=== PATIENT | male | born 1935 | race Caucasian/White ===

== ENCOUNTER 2018-11-13 09:10 | Emergency (ER) | payer MEDICARE, OTHER, MEDICAID ==
--- NOTE | 2018-11-13 09:12 | EDM.PDOC ---
ED HPI GENERAL MEDICAL PROBLEM - General Chief Complaint: General Stated Complaint: Vertigo Time Seen by Provider: 11/13/18 09:10 Source of Information: Reports: Patient, Old Records ([facility] chart/EMR) History Limitations: Reports: No Limitations - History of Present Illness INITIAL COMMENTS - FREE TEXT/NARRATIVE: Patient was brought to the emergency room via ambulance with slack line yarder accompaniment for evaluation of nonspecific vertigo and dizziness, which started earlier this morning. The nursing staff did notice some vertigo with blood pressure 186/88 earlier this morning. Only limited records obtained from the halfway with no previous verbal report received from that facility. Saline lock was placed by the paramedics with a normal EKG prior to arrival to this facility. No other treatment prior to arrival. The patient denies any chest pain/pressure, heart flutter, dizziness, orthostasis, orthopnea, diaphoresis, paresthesias, recent decreased exercise tolerance, or any other anginal-type symptoms. No recent history of abdominal pain, heartburn, nausea, diarrhea, melena, gross hematochezia, or any food intolerance, including fatty foods, etc.. The patient also denies any recent fever, cough, wheezing, dyspnea , etc.. No history of recent headaches, visual changes, diplopia, change in mental status, or other change in his previous neurological deficits with patient having a long history of polio as below. He denies any pain or discomfort. He has had a distant history of similar type symptoms, which were related to his polio, per history from his son. Onset: Today, Unknown/Unsure Onset Date: 11/13/18 Onset Time: 08:00 Duration: Intermittent Location: Reports: Other (No pain) Quality: Reports: Same as Previous Episode Severity: Moderate Improves with: Reports: Rest Worsens with: Reports: Movement (Of his head) Associated Symptoms: Reports: Weakness (Stable bilateral leg weakness from his MS). Denies: Confusion, Chest Pain, Cough, Diaphoresis, Fever/Chills, Headaches , Loss of Appetite, Nausea/Vomiting, Seizure, Shortness of Breath Treatments TOP CLEANER: Reports: EKG, IV/IO - Related Data Allergies Allergy/AdvReac Type Severity Reaction Status Date / Time No Known Allergies Allergy Verified 06/06/15 15:59 Home Meds: Home Meds Insulin Glarg,Human.Rec.Analog [LantUS Solostar] 60 units SUBCUT BEDTIME [History] Lovastatin [Mevacor] 40 mg PO DAILY 06/06/15 [History] Acetaminophen 650 mg PO BID 11/13/18 [History] Clopidogrel [Plavix] 75 mg PO DAILY 11/13/18 [History] Dextromethorphan/guaiFENesin [Robitussin DM] 5 ml PO BEDTIME 11/13/18 [History] Fesoterodine Fumarate [Toviaz] 1 tab PO DAILY 11/13/18 [History] Insulin Aspart [NovoLOG] 28 unit SQ BID 11/13/18 [History] Losartan [Cozaar] 25 mg PO DAILY 11/13/18 [History] Lutein/Minerals/Vit A,C & E [I-Susana] 1 tab PO DAILY 11/13/18 [History] Magnesium Oxide 400 mg PO DAILY #30 tab 11/13/18 [Rx] Meclizine [Antivert] 25 mg PO Q6H PRN #20 tab 11/13/18 [Rx] Metoprolol Succinate [Toprol XL] 25 mg PO DAILY 11/13/18 [History] Mirabegron [Myrbetriq] 25 mg PO DAILY 11/13/18 [History] Multivitamin [Multivitamins] 1 each PO DAILY 11/13/18 [History] Sennosides/Docusate Sodium [Docuzen 8.6-50 mg Tablet] 2 tab PO BID PRN 11/13/18 [History] Tamsulosin HCl [Flomax] 1 cap PO DAILY 11/13/18 [History] Tolterodine [Detrol] 2 mg PO BID 11/13/18 [History] Past Medical History HEENT History: Reports: Cataract, Hard of Hearing, Impaired Vision, Other (See Below). Denies: Allergic Rhinitis, Glaucoma, Macular Degeneration, Otitis Media , Retinal Detachment Other HEENT History: Bilateral presbycusis with no current hearing aid therapy. Patient does wear glasses. Cardiovascular History: Reports: Arrhythmia, High Cholesterol, Hypertension. Denies: Afib, Aneurysm, Blood Clots/VTE/DVT, CAD, Heart Failure, Heart Murmur, CO, PVD, Syncope Respiratory History: Reports: None. Denies: Asthma, COPD, PE, Pneumothorax, Sleep Apnea Gastrointestinal History: Reports: Chronic Constipation, Diverticulosis, Fecal Incontinence, GERD, Hiatal Hernia, Other (See Below). Denies: Celiac Disease, Cholelithiasis, Colon Polyp, Gastritis, GI Bleed, Hepatitis, Jaundice, Pancreatitis, PUD Other Gastrointestinal History: Stool incontinence secondary to his polio. Gilbert's syndrome. Genitourinary History: Reports: BPH, Hydronephrosis, Renal Calculus, Urinary Incontinence, UTI, Recurrent, Other (See Below). Denies: Acute Renal Failure, Chronic Renal Insuffiency Other Genitourinary History: Bilateral nephrolithiasis with an additional moderate hydronephrosis secondary to 6.6 mm left ureteral stone requiring stent placement and removal in August 2015 as below. Note sepsis during that hospitalization. Urinary incontinence secondary to his polio. Musculoskeletal History: Reports: Arthritis, Back Pain, Chronic, Fracture, Neck Pain, Chronic, Osteoarthritis, Osteoporosis, Other (See Below). Denies: Gout, RA, SLE Other Musculoskeletal History: T12 compression fracture. Neurological History: Reports: Vertigo, Other (See Below). 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 Psychiatric History: Reports: None. Denies: Abuse, Victim of, ADD, Anxiety, Depression, Psych Hospitalization(s), PTSD, Suicide Attempt, Suicidal Ideation Endocrine/Metabolic History: Reports: Diabetes, Type II, IDDM, Obesity/BMI 30+, Osteoporosis. Denies: Diabetes, Type I, Hypothyroidism Hematologic History: Reports: None. Denies: Anemia, B12 Deficiency, Blood Transfusion(s), Iron Deficiency Immunologic History: Reports: None. Denies: AIDS, HIV, SLE Oncologic (Cancer) History: Reports: None. Denies: Basal Cell Carcinoma, Bladder, Colon, Hodgkin's Lymphoma, Leukemia, Lymphoma, Malignant Melanoma, Non- Hodgkin's Lymphoma, Prostate, Squamous Cell Carcinoma Dermatologic History: Reports: None. Denies: Decubitus Ulcer, Eczema, Psoriasis - Infectious Disease History Infectious Disease History: Reports: Chicken Pox, Measles, Other (See Below). Denies: C-Difficile, Meningitis, Mononucleosis, MRSA, Mumps, Pertussis ( Whooping Cough), Rheumatic Fever, Rubella, Shingles, TB, VRE Other Infectious Disease History: Polio at age 13 as above - Past Surgical History Head Surgeries/Procedures: Reports: None HEENT Surgical History: Reports: Oral Surgery, Other (See Below). Denies: Adenoidectomy, Cataract Surgery, Eye Surgery, Laser Surgery, LASIK, Myringotomy w Tube(s), Naso-Sinus Surgery, Tonsillectomy Other HEENT Surgeries/Procedures: Multiple teeth extractions including 2 wisdom teeth in his 20s and 1 wisdom tooth in his 30s. Cardiovascular Surgical History: Reports: None. Denies: Varicose Respiratory Surgical History: Reports: None. Denies: Thoracentesis GI Surgical History: Reports: None, Hernia, Inguinal, Other (See Below). Denies : Appendectomy, Cholecystectomy, Colonoscopy, EGD, Hernia, Abdominal, Hernia Repair/Other Other GI Surgeries/Procedures: Right inguinal hernia repair on 04/15/05. Male Surgical History: Reports: Circumcision, Kidney Stone Extraction, Other (See Below). Denies: TURP-Transurethral Resection of Prostate, Vasectomy Other Male Surgeries/Procedures: Circumcision as an . Left ureteral stone extraction with stent placement on 06/07/15. Endocrine Surgical History: Reports: None. Denies: Thyroid Biopsy Neurological Surgical History: Reports: None. Denies: C-Spine, Discectomy, Laminectomy, Lumbar Spine, Sacral Spine, Spinal Fusion, Thoracic Spine, Vertebroplasty Musculoskeletal Surgical History: Reports: None. Denies: Amputation, Arthroscopic Procedure, Carpal Tunnel, Ganglion Cyst, Joint Replacement, ORIF, Shoulder Surgery Oncologic Surgical History: Reports: None Dermatological Surgical History: Reports: None - Past Imaging History Past Imaging History: Reports: CAT Scan (Positive CT scan of the abdomen and pelvis on 06/06/15 for nephrolithiasis, hydronephrosis, etc. as above.), MRI ( Brain, C-spine, and T-spine on 05/26/12), Ultrasound (Bilateral renal ultrasound on 06/01/18.) Social & Family History - Family History HEENT: Reports: None. Denies: Glaucoma, Macular Degeneration, Retinal Detachment Cardiac: Reports: CAD, High Cholesterol, Hypertension, CO, Other (See Below). Denies: Aneurysm, Arrhythmia, Blood Clots/VTE/DVT, PVD/COD, Syncope Other Cardiac Family History: Maternal grandfather with fatal CO in his 70s. Father with fatal CO at age 78. Hyperlipidemia in mother. Hypertension in mother and maternal grandfather. Respiratory: Denies: Asthma, COPD, PE, Pneumothorax, Sleep Apnea GI: Reports: Cholelithiasis, Other (See Below) Other GI Family History: Mother with cholelithiasis. : Reports: Renal Calculus, Other (See Below). Denies: Renal Disease/ Insufficiency Other Family History: Mother with bladder stone. OBGYN: Reports: Other (See Below) Other OBGYN Family History: Daughter with endometriosis. Musculoskeletal: Reports: Fibromyalgia, Osteoarthritis, RA. Denies: Gout, SLE Other Musculoskeletal Family History: Brother with fibromyalgia. Osteoarthritis in mother. Maternal aunt with rheumatoid arthritis. Neurological: Reports: TIA. Denies: Alzheimers Disease, Cerebral Aneurysms, CVA , Parkinson's, Seizure Other Neurological Family History: Mother and maternal aunt with polio. Mother with TIA. Psychiatric: Reports: Bipolar, Depression, Other (See Below). Denies: Suicide Attempt Other Psychiatric Family History: Daughter with anxiety depression disorder and bipolar reactions. Endocrine/Metabolic: Reports: None. Denies: Diabetes, Type I, Diabetes, type II , Hypothyroidism, IDDM Hematologic: Reports: None. Denies: Anemia, SLE Immunologic: Reports: None. Denies: AIDS, HIV, SLE Dermatologic: Reports: None. Denies: Eczema, Psoriasis Oncologic: Reports: Leukemia (Maternal uncle with fatal leukemia in his 70s), Lung (Paternal grandmother with fatal lung cancer), Ovarian (Daughter in her 20s ), Skin (Father with basal cell carcinoma) - Tobacco Use Smoking Status *Q: Former Smoker Tobacco Use Within Last Twelve Months: No Years of Tobacco use: 2 Packs/Tins Daily: 0.8 Packs/Tins Daily Comment: Last tobacco use in 1965 Used Tobacco, but Quit: Yes Smoking Cessation Information Provided To Patient: No Second Hand Smoke Exposure: No Second Hand Smoke Education Provided: No - Caffeine Use Caffeine Use: Reports: Soda (2 sodas per day), Tea (2 cups of tea per week). Denies: Coffee (Decaffeinated coffee only), Energy Drinks - Alcohol Use Alcohol Use History: No Days Per Week of Alcohol Use: 0 Number of Drinks Per Day: 0 Number of Drinks Per Day Comment: No previous DWIs, problems with alcohol abuse , etc. 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 ED EXAM, GENERAL - Physical Exam Exam: See Below Exam Limited By: No Limitations General Appearance: Alert, WD/WN, No Apparent Distress Eye Exam: Bilateral Eye: EOMI, Normal Fundi, Normal Inspection (No nystagmus is only mild vertigo with head movement bilaterally), PERRL Ears: Normal External Exam, Normal Canal, Hearing Grossly Normal, Normal TMs Nose: Normal Inspection, Normal Mucosa, No Blood Throat/Mouth: Normal Lips, Normal Gums, Normal Oropharynx, Normal Voice, No Airway Compromise. No: Normal Teeth (Double missing teeth including broken teeth into the gumline with possible beginning caries in the left upper premolar region), Dysphagia, Perioral Cyanosis Head: Atraumatic, Normocephalic. No: Facial Swelling, Facial Tenderness, Sinus Tenderness Neck: Supple, Non-Tender, Full Range of Motion, Carotid Bruit (Bilateral carotid bruitsmild). No: Lymphadenopathy (L), Lymphadenopathy (R), Thyromegaly Respiratory/Chest: No Respiratory Distress, Lungs Clear, Normal Breath Sounds, No Accessory Muscle Use, Chest Non-Tender. No: Pleural Rub, Retractions Cardiovascular: Normal Peripheral Pulses, Regular Rate, Rhythm, No Edema, No Gallop, No JVD, No Murmur, No Rub. No: Gallop/S3, Gallop/S4, Friction Rub Peripheral Pulses: 2+: Radial (L), Radial (R), Dorsalis Pedis (L), Dorsalis Pedis (R) GI/Abdominal: Normal Bowel Sounds, Soft, Non-Tender, No Organomegaly, No Distention, No Abnormal Bruit, No Mass, Pelvis Stable, Other (Obese). No: Guarding (Male) Exam: Deferred Rectal (Males) Exam: Deferred Back Exam: Full Range of Motion, Other (Mild to moderate kyphoscoliosis). No: CVA Tenderness (L), CVA Tenderness (R), Muscle Spasm Extremities: Non-Tender, Pedal Edema (+1 bilateral pedal/pretibial edema left greater than right), Limited Range of Motion (Lower extremity secondary to his polio ). No: Justen's Sign Neurological: Alert, Oriented, Normal Cognition, Normal Reflexes (Negative Babinski's). No: CN II-XII Intact, Normal Gait (Left leg paralysis and severe right leg weakness secondary to her poliostable by history) Psychiatric: Normal Affect, Normal Mood Skin Exam: Warm. No: Diaphoretic, Wound/Incision Lymphatic: No Adenopathy Course - Vital Signs Last Recorded V/S: Last Vital Signs Temp 36.4 C 11/13/18 09:10 Pulse 86 11/13/18 11:51 Resp 17 11/13/18 11:51 BP 139/48 L 11/13/18 11:51 Pulse Ox 95 11/13/18 11:51 Vital Signs - 24 hr 11/13/18 11/13/18 11/13/18 09:10 09:36 10:21 Temperature [ 36.4 C Oral] Pulse, 90 90 87 Peripheral [ Right Pulse Oximetry] Respiratory 20 20 20 Rate Blood Pressure 156/70 H 166/68 H 139/98 H [Left Upper Arm ] O2 Sat by Pulse 95 95 96 Oximetry 11/13/18 11/13/18 11:06 11:51 Temperature [ Oral] Pulse, 87 86 Peripheral [ Right Pulse Oximetry] Respiratory 20 17 Rate Blood Pressure 128/57 L 139/48 L [Left Upper Arm ] O2 Sat by Pulse 95 95 Oximetry - Orders/Labs/Meds Orders: Active Orders 24 hr Category Date Time Status Cardiac Monitoring [RC] . DIRECTED Care 11/13/18 09:13 Active Obtain Past Medical Record [OM.PC] Routine Oth 11/13/18 09:13 Active Labs: Laboratory Tests 11/13/18 11/13/18 Range/Units 09:20 09:20 WBC 7.7 (4.0-10.2) K/uL RBC 5.13 (4.33-5.41) M/uL Hgb 15.6 (13.1-16.8) g/dL Hct 46.3 (39.0-49.0) % MCV 90.3 (84.0-98.0) fL MCH 30.4 (28.2-33.3) pg MCHC 33.7 (31.7-36.0) g/dL RDW 14.0 (11.2-14.1) % Plt Count 158 (150-350) K/uL Neut % (Auto) 81.8 H (45.0-80.0) % Lymph % (Auto) 10.0 (10.0-50.0) % [place] % (Auto) 5.2 (2.0-14.0) % Eos % (Auto) 2.5 (0.0-5.0) % Baso % (Auto) 0.5 (0.0-2.0) % Neut # (Auto) 6.28 (1.40-7.00) K/uL Lymph # (Auto) 0.77 (0.50-3.50) K/uL [place] # (Auto) 0.40 (0.00-1.00) K/uL Eos # (Auto) 0.19 (0.00-0.50) K/uL Baso # (Auto) 0.04 (0.00-0.20) K/uL Sodium 139 (136-145) mmol/L Potassium 4.7 (3.5-5.1) mmol/L Chloride 104 (98-107) mmol/L Carbon Dioxide 29.3 (21.0-32.0) mmol/L BUN 13 (7-18) mg/dL Creatinine 0.66 (0.51-1.17) mg/dL Est Cr Clr Drug Dosing 75.19 mL/min Estimated GFR (MDRD) > 60 mL/min Glucose 232 H (74-106) mg/dL Calcium 8.7 (8.5-10.1) mg/dL Magnesium 1.6 L (1.8-2.4) mg/dL Total Bilirubin 1.2 H (0.2-1.0) mg/dL AST 29 (15-37) U/L ALT 43 (12-78) U/L Alkaline Phosphatase 50 (46-116) IU/L C-Reactive Protein < 0.2 (<=0.9) mg/dL Total Protein 6.9 (6.4-8.2) g/dL Albumin 3.7 (3.4-5.0) g/dL Meds: None - Radiology Interpretation Free Text/Narrative:: None although EKG from the paramedics was reviewed with no evidence of acute ischemic changes or arrhythmia Departure - Departure Time of Disposition: 12:35 Disposition: DC/Tfer to [facility] 62 Condition: Good Clinical Impression: IDDM (insulin dependent diabetes mellitus), Gilbert's syndrome, Peptic reflux disease, Caries, Polio, Vertigo, Hypomagnesemia, Hypertension Osteoarthritis Qualifiers: Osteoarthritis location: multiple joints Osteoarthritis type: primary Qualified Code(s): M15.0 - Primary generalized (osteo)arthritis - Discharge Information *PRESCRIPTION DRUG MONITORING PROGRAM REVIEWED*: Not Applicable *COPY OF PRESCRIPTION DRUG MONITORING REPORT IN PATIENT ELVIE: Not Applicable Prescriptions: Magnesium Oxide 400 mg PO DAILY #30 tab Meclizine [Antivert] 25 mg PO Q6H PRN #20 tab PRN Reason: Dizziness Instructions: Vertigo, [id number], Labyrinthitis, [id number] Referrals: Kerri Saldana PA [Primary Care Provider] - Forms: ED Department Discharge Additional Instructions: 1. Follow up with your regular provider in 10-14 days as needed, if symptoms persist. Bring these discharge instructions with you to that visit.. 2. Continue current to previous standard and routine halfway orders. 3. Update regular provider in 7 days with further instructions for possible discontinuation and/or continuation of induration newly prescribed causing therapy. Discuss magnesium level at that time as below. 4. Magnesium level in 7 days with further instructions by regular provider as above 5. Continue strict fall precautions. 6. Please remember that we are ALWAYS here for you and want to answer any questions you may have. Feel free to call the hospital any time and we call you back MARCE. - Problem List & Annotations (1) Vertigo SNOMED Code(s): 403845741 Code(s): R42 - DIZZINESS AND GIDDINESS Status: Acute Priority: High Current Visit: Yes Onset Date: 11/13/18 Annotation/Comment:: Nonspecific vertigo with resolved nystagmus at this time. Possible labyrinthitis versus related to his polio is in the past?. Symptomatic relief and close follow-up by his regular provider as per discharge instructions. No change in neurological status. (2) Polio SNOMED Code(s): 552492245 Code(s): A80.9 - ACUTE POLIOMYELITIS, UNSPECIFIED Status: Chronic Priority: Medium Current Visit: Yes Annotation/Comment:: Stable bilateral lower extremity paresis by history and today's exam. No other neurological deficits. (3) Hypomagnesemia SNOMED Code(s): 815146436 Code(s): E83.42 - HYPOMAGNESEMIA Status: Acute Priority: Medium Current Visit: Yes Onset Date: 11/13/18 Annotation/Comment:: Initiate magnesium oxide therapy with close follow-up by regular provider as per discharge instructions. (4) Caries SNOMED Code(s): 56671779 Code(s): K02.9 - DENTAL CARIES, UNSPECIFIED Status: Chronic Priority: Medium Current Visit: Yes Annotation/Comment:: Patient once again strongly encouraged to followup with his dentist MARCE with dental hygiene and complications of dental caries discussed. (5) Gilbert's syndrome SNOMED Code(s): 01345693 Code(s): E80.4 - GILBERT SYNDROME Status: Chronic Priority: Medium Current Visit: Yes Annotation/Comment:: Stable per our medical records. (6) IDDM (insulin dependent diabetes mellitus) SNOMED Code(s): 83054012 Code(s): E11.9 - TYPE 2 DIABETES MELLITUS WITHOUT COMPLICATIONS; Z79.4 - SENIOR LIVING (CURRENT) USE OF INSULIN Status: Chronic Priority: Medium Current Visit: Yes Annotation/Comment:: Stable by history. Continue close observation by halfway and his providers. (7) Osteoarthritis SNOMED Code(s): 301606814 Code(s): M19.90 - UNSPECIFIED OSTEOARTHRITIS, UNSPECIFIED SITE Status: Chronic Priority: Medium Current Visit: Yes Annotation/Comment:: Stable by patient history Qualifiers: Osteoarthritis location: multiple joints Osteoarthritis type: primary Qualified Code(s): M15.0 - Primary generalized (osteo)arthritis (8) Peptic reflux disease SNOMED Code(s): 663249146 Code(s): K21.9 - GASTRO-ESOPHAGEAL REFLUX DISEASE WITHOUT ESOPHAGITIS Status: Chronic Priority: Medium Current Visit: Yes Annotation/Comment:: Stable by patient history and nonsymptomatic today. (9) Hypertension SNOMED Code(s): 23292761 Code(s): I10 - ESSENTIAL (PRIMARY) HYPERTENSION Status: Chronic Priority : Medium Current Visit: Yes Annotation/Comment:: Blood pressures somewhat elevated initially in the emergency room, however improved prior to discharge. Continue to observe closely by his regular providers with no change in medical therapy for now. Qualifiers: Hypertension type: essential hypertension Qualified Code(s): I10 - Essential (primary) hypertension - Problem List Review Problem List Initiated/Reviewed/Updated: Yes - My Orders Last 24 Hours: My Active Orders 11/13/18 09:13 Cardiac Monitoring [RC] . DIRECTED Obtain Past Medical Record [OM.PC] Routine - Assessment/Plan Last 24 Hours: My Active Orders 11/13/18 09:13 Cardiac Monitoring [RC] . DIRECTED Obtain Past Medical Record [OM.PC] Routine Assessment:: As above Plan: As above. Extensive precautions were given to the patient, who is in agreement with the treatment plan. See Patient Instructions for further treatment and plan. Emergency room record to be provided to the halfway.
[2018-11-13 09:48] LABS: CHLORIDE,CL 104 mmol/L (98-107); SODIUM,NA 139 mmol/L (136-145)
[2018-11-13 13:02] VITALS: BP 139/48; PULSE 86
== END 2018-11-13 12:35 ==
LOC: LL.ED 09:10 → UNDOADMOB 10:07 → LL.MS 10:07 → LL.ED 12:35
DX: E11.9 Type 2 diabetes mellitus without complications (principal); I10 Essential (primary) hypertension; E80.4 Gilbert syndrome; M15.0 Primary generalized (osteo)arthritis; A80.9 Acute poliomyelitis, unspecified; K21.9 Gastro-esophageal reflux disease without esophagitis; K02.9 Dental caries, unspecified; E78.00 Pure hypercholesterolemia, unspecified; E83.42 Hypomagnesemia; F41.9 Anxiety disorder, unspecified; F32.9 Major depressive disorder, single episode, unspecified; E66.9 Obesity, unspecified; Z87.891 Personal history of nicotine dependence; Z68.35 Body mass index [BMI] 35.0-35.9, adult; Z79.4 Long term (current) use of insulin; Z79.899 Other long term (current) drug therapy
CPT/HCPCS: 36415; 80053; 83735; 85025; 86140; 99284; 99285

== ENCOUNTER 2024-03-12 11:30 | Emergency (ER) | payer MEDICAID, MEDICARE, OTHER ==
[2024-03-12] MEDS ORDERED: Sodium Chloride 0.9% 10 ML Syringe FLUSH PRN (11:33)
[2024-03-12] MEDS ORDERED: Ondansetron 4 MG/2 ML SDV IVPUSH PRN (11:34)
[2024-03-12 11:50] LABS: BASOPHILS ABSOLUTE AUTO 0.02 K/uL (0.00-0.20); BASOPHILS PERCENT AUTO 0.1 % (0.0-2.0); EOSINOPHILS ABSOLUTE AUTO 0.08 K/uL (0.00-0.50); EOSINOPHILS PERCENT AUTO 0.6 % (0.0-5.0); HEMATOCRIT 39.7 % (39.0-49.0); HEMOGLOBIN 12.6 g/dL (13.1-16.8); IMMATURE GRAN ABSOLUTE AUTO 0.07 10^3/uL (0.00-0.50); IMMATURE GRAN PERCENT AUTO 0.5 % (0.0-5.0); LYMPHOCYTES ABSOLUTE AUTO 0.53 K/uL (0.50-3.50); LYMPHOCYTES PERCENT AUTO 3.9 % (10.0-50.0); MEAN CORPUSCULAR HEMOGLOBIN 27.8 pg (28.2-33.3); MEAN CORPUSCULAR HGB CONC 31.7 g/dL (31.7-36.0); MEAN CORPUSCULAR VOLUME 87.6 fL (84.0-98.0); MONOCYTES ABSOLUTE AUTO 0.47 K/uL (0.00-1.00); MONOCYTES PERCENT AUTO 3.5 % (2.0-14.0); NEUTROPHILS ABSOLUTE AUTO 12.42 K/uL (1.40-7.00); NEUTROPHILS PERCENT AUTO 91.4 % (45.0-80.0); PLATELET COUNT,PLT 288 K/uL (150-350); RED BLOOD CELL COUNT 4.53 M/uL (4.33-5.41); RED CELL DISTRIBUTION WIDTH 15.3 % (11.2-14.1); WHITE BLOOD CELL COUNT,WBC 13.6 K/uL (4.0-10.2)
[2024-03-12 12:09] LABS: INR 1.2 (0.9-1.1); PROTHROMBIN TIME 11.6 SEC (9.0-11.1)
[2024-03-12 12:14] LABS: LACTIC ACID 1.3 mmol/L (0.4-2.0)
[2024-03-12 12:20] LABS: ALANINE AMINOTRANSFERASE,ALT 13 U/L (12-78); ALBUMIN 2.3 g/dL (3.4-5.0); ALKALINE PHOSPHATASE 99 IU/L (46-116); ANION GAP 10.2 meq/L (7-15); ASPARTATE AMNIOTRANSFERASE,AST 16 U/L (15-37); BILIRUBIN TOTAL 1.2 mg/dL (0.2-1.0); BLOOD UREA NITROGEN,BUN 43 mg/dL (7-18); CALCIUM 8.4 mg/dL (8.5-10.1); CARBON DIOXIDE,CO2 25.8 mmol/L (21.0-32.0); CHLORIDE,CL 106 mmol/L (98-107); CREATININE 1.04 mg/dL (0.51-1.17); GLUCOSE RANDOM 206 mg/dL (70-99); MAGNESIUM 2.4 mg/dL (1.8-2.4); POTASSIUM,K 4.2 mmol/L (3.5-5.1); PRO B-TYPE NATRIUR PEPT,BNPPRO 415 pg/mL (0-125); PROTEIN TOTAL,TP 5.7 g/dL (6.4-8.2); SODIUM,NA 142 mmol/L (136-145)
[2024-03-12 12:22] LABS: ESTIMATED GFR 69 mL/min (>=60)
[2024-03-12 15:47] VITALS: BP 143/73; PULSE 83
== END 2024-03-12 15:24 ==
LOC: LL.ED 11:30
DX: K21.9 Gastro-esophageal reflux disease without esophagitis (principal); I10 Essential (primary) hypertension; E78.00 Pure hypercholesterolemia, unspecified; E11.9 Type 2 diabetes mellitus without complications; E66.9 Obesity, unspecified; Z87.19 Personal history of other diseases of the digestive system; Z79.4 Long term (current) use of insulin; Z79.899 Other long term (current) drug therapy
CPT/HCPCS: 36415; 71045; 80053; 83605; 83735; 83880; 84484; 85025; 85610; 87428-QW; 99284; 99285

== ENCOUNTER 2024-03-18 09:04 | Emergency (ER) | payer MEDICARE ==
[2024-03-18] MEDS ORDERED: Sodium Chloride 0.9% 10 ML Syringe FLUSH PRN (09:15)
[2024-03-18 09:29] LABS: BASOPHILS ABSOLUTE AUTO 0.01 K/uL (0.00-0.20); HEMATOCRIT 43.8 % (39.0-49.0); HEMOGLOBIN 13.9 g/dL (13.1-16.8); IMMATURE GRAN PERCENT AUTO 1.7 % (0.0-5.0); LYMPHOCYTES ABSOLUTE AUTO 0.53 K/uL (0.50-3.50); LYMPHOCYTES PERCENT AUTO 2.3 % (10.0-50.0); MEAN CORPUSCULAR HEMOGLOBIN 27.9 pg (28.2-33.3); MEAN CORPUSCULAR HGB CONC 31.7 g/dL (31.7-36.0); MEAN CORPUSCULAR VOLUME 87.8 fL (84.0-98.0); MONOCYTES ABSOLUTE AUTO 1.02 K/uL (0.00-1.00); MONOCYTES PERCENT AUTO 4.4 % (2.0-14.0); NEUTROPHILS ABSOLUTE AUTO 21.41 K/uL (1.40-7.00); NEUTROPHILS PERCENT AUTO 91.6 % (45.0-80.0); PLATELET COUNT,PLT 284 K/uL (150-350); RED BLOOD CELL COUNT 4.99 M/uL (4.33-5.41); WHITE BLOOD CELL COUNT,WBC 23.4 K/uL (4.0-10.2)
[2024-03-18] MEDS: Lactated Ringers 1,000 ML IV SCH (09:43)
[2024-03-18 09:53] LABS: ALANINE AMINOTRANSFERASE,ALT 20 U/L (12-78); ALBUMIN 2.3 g/dL (3.4-5.0); ALKALINE PHOSPHATASE 109 IU/L (46-116); ASPARTATE AMNIOTRANSFERASE,AST 21 U/L (15-37); BILIRUBIN TOTAL 0.7 mg/dL (0.2-1.0); BLOOD UREA NITROGEN,BUN 73 mg/dL (7-18); C-REACTIVE PROTEIN 21.57 mg/dL (0.05-0.30); CALCIUM 8.6 mg/dL (8.5-10.1); CARBON DIOXIDE,CO2 22.1 mmol/L (21.0-32.0); CHLORIDE,CL 109 mmol/L (98-107); CREATININE 1.68 mg/dL (0.51-1.17); PROTEIN TOTAL,TP 6.4 g/dL (6.4-8.2); SODIUM,NA 147 mmol/L (136-145)
[2024-03-18 09:55] LABS: ANION GAP 20.9 meq/L (7-15); ESTIMATED GFR 39 mL/min (>=60)
[2024-03-18 09:56] LABS: GLUCOSE RANDOM 411 mg/dL (70-99)
[2024-03-18 10:18] VITALS: BP 126/52; PULSE 125
== END 2024-03-18 11:15 ==
LOC: LL.ED 09:04
DX: R62.7 Adult failure to thrive (principal); R41.82 Altered mental status, unspecified; R53.83 Other fatigue; K21.9 Gastro-esophageal reflux disease without esophagitis; E78.5 Hyperlipidemia, unspecified; I10 Essential (primary) hypertension; E11.9 Type 2 diabetes mellitus without complications; A80.9 Acute poliomyelitis, unspecified; D72.829 Elevated white blood cell count, unspecified; E78.00 Pure hypercholesterolemia, unspecified; E66.9 Obesity, unspecified; Z79.899 Other long term (current) drug therapy; Z79.4 Long term (current) use of insulin; Z51.5 Encounter for palliative care; Z79.1 Long term (current) use of non-steroidal anti-inflammatories (NSAID)
CPT/HCPCS: 36415; 80053; 83605; 85025; 86140; 96360; 99284; 99285-25; J7120